=== PATIENT | male | born 2005 | race Caucasian/White ===

== ENCOUNTER 2023-07-08 17:20 | Emergency (ER) | payer OTHER, SELFPAY ==
[2023-07-08 17:37] VITALS: BP 105/76; PULSE 65; RESP 16; TEMP 36.6; O2SAT 100
--- NOTE | 2023-07-08 17:59 | ED.URI ---
HPI - URI/Sore Throat General Chief Complaint: Upper Respiratory Infection Stated Complaint: Cough;Congestion Time Seen by Provider: 07/08/23 17:50 Source: patient, RN notes reviewed and old records reviewed Mode of arrival: ambulatory Limitations: no limitations History of Present Illness HPI Narrative: 18 year old male presents to [facility] care with complaints of cough and congestion for the past 5 weeks. Patient reports that he ahs been taking DayQuil/ NyQuil and using cough drops. Patient denies any fevers chills or body aches reports sinus congestion with sinus pressure, denies any acute headache. Patient reports that his cough is frequent and has increased . Patient denies any history of asthma, denies any shortness of breath with respirations even and no tachypnea noted. MD elicited complaint: cough (congestion) Pertinent past history: immunosuppression Onset (ago): week(s) (increased cough last night) Pain scale (0-10): 3 Able to tolerate fluids by mouth: Yes Treatments prior to arrival: cold medicine and other (cough drops) Related Data Home Medications Medication Instructions Recorded Confirmed folic acid 1 mg tablet 1 mg PO DAILY 07/08/23 07/08/23 methotrexate sodium 5 mg tablet 25 mg PO WEEKLY 07/08/23 07/08/23 (Trexall) Allergies Allergy/AdvReac Type Severity Reaction Status Date / Time azithromycin [From Zithromax] Allergy Other Verified 07/08/23 17:50 Review of Systems Review of Systems: CONSTITUTIONAL: Denies malaise, chills, sweats, or fever. EYES: Denies visual changes, redness, or discharge. ENT: Reports rhinorrhea, congestion, sinus pain,no otalgia and no sore throat. CARDIOVASCULAR: Denies chest pain, palpitations, or edema. RESPIRATORY: Reports cough.? Denies dyspnea. GASTROINTESTINAL: Denies abdominal pain, nausea, vomiting, diarrhea SKIN: Denies rash or itching. MUSCULOSKELETAL: Denies myalgia. NEUROLOGIC: Denies headache. All systems reviewed & are unremarkable except as noted in HPI and below PMFSH Past Medical History Medical History (Updated 07/09/23 @ 21:01 by Lorrie Oneil NP) Crohn's disease not affecting current episode of care Social History Social History (Updated 07/09/23 @ 20:56 by Lorrie Oneil NP) Smoking status: Never smoker Alcohol intake: never Substance use: never Occupation/Education: student Gender identity (if verbalized by the patient): Male Comments At time of signature, agree with nursing past medical, surgical, social and family history. There is no relevant family history pertinent to the presenting complaint Exam Narrative: GENERAL: Well-appearing, well-nourished, and in no acute distress. HEAD: Normocephalic EYES: PERRLA, conjunctivae clear ENT: Nares clear, turbinates edematous and erythematous, clear discharge, sinus pain/pressure. Mucous membranes moist. TM pearly ibrahim with dull light reflex bilaterally; no tragal tenderness. Oropharynx erythematous without lesions. Tonsils not enlarged and without exudate, no drooling, no hoarseness, no trismus, uvula midline. NECK: Supple. No lymphadenopathy CHEST: Clear to auscultation, breath sounds equal. No wheezing, rhonchi, rales, or stridor. No respiratory distress, speaks in full sentences.cough,SAO2 100% on room air HEART: Regular rate and rhythm. No murmur heard. SKIN: Warm, dry, no rash. NEURO: Alert and oriented x3. PSYCH: Normal mood and affect Course Course Emergency Course: Patient is aware of diagnosis, understands and agrees to treatment plan.? Anticipatory guidance given.? Patient agrees to follow-up as directed and is aware of reasons to seek care at the emergency department. Portions of this record may have been created with voice recognition software Level of Care: Express Care Visit Vital Signs Vital signs: Vital Signs Temperature 36.6 C 07/08/23 17:37 Pulse Rate 65 07/08/23 17:37 Respiratory Rate 16
== END 2023-07-08 18:12 | disposition home or self-care (01) ==
PROVIDERS: Emergency Provider Registered Nurse
DX: J01.90 Acute sinusitis, unspecified (principal); K50.90 Crohn's disease, unspecified, without complications
CPT/HCPCS: 99213; G0463